=== PATIENT | female | born 1960 | race Caucasian/White ===

== ENCOUNTER → 2016-10-18 | Outpatient (CLI) | payer OTHER ==
[~2016-10-18] MED LIST: ASPI-28 PO; BENA20TA48 PO; [UNRECOGNIZED DRUG - CODE] PO
--- NOTE | 2016-10-18 09:55 | RADRPT ---
PROCEDURE: XR right knee. CLINICAL INDICATION: Knee pain. TECHNIQUE: Three views are available for review. COMPARISON: 05/22/2015 FINDINGS: There is a total knee replacement. There is no evidence of loosening of the prosthesis. The osseous structures are normal in mineralization, architecture and alignment No acute fracture or dislocation is seen.No osseous lesions are identified. The soft tissues are unremarkable . IMPRESSION: Unremarkable total knee replacement. RPTAT: [facility] .Valdez Rowe MD, MD Date Time Electronically viewed and signed by .Valdez Rowe MD, on 10/18/2016 09:54 .B/
--- NOTE | 2016-10-18 10:38 | RADRPT ---
PROCEDURE: XR Knee 3 views. CLINICAL INDICATION: Status post knee replacement TECHNIQUE: AP, sunrise and lateral view of the left knee were obtained. The images reviewed on a PACS workstation. COMPARISON: January 29, 2016 FINDINGS: Complete left knee replacement is identified. Prosthetic components are in appropriate position and alignment. No fractures or destructive lesions are observed. Diffuse osteopenia is noted. Soft tiss ues are unremarkable. IMPRESSION: Status post left knee replacement. Prosthetic components are in appropriate position and alignment. Osteopenia. RPTAT: AA .Junior Valero MD, MD Date Time Electronically viewed and signed by .Junior Valero MD, MD on 10/18/2016 10:38 .P/
== END | disposition home or self-care (01) ==
LOC: HKI 10:11
PROVIDERS: ATTEND Orthopaedic Surgery
DX: Z47.1 Aftercare following joint replacement surgery (principal); Z96.653 Presence of artificial knee joint, bilateral
CPT/HCPCS: 73562; Z7500; G0463

== ENCOUNTER 2017-02-10 15:59 | Day surgery (SDC) | payer OTHER ==
[~2017-02-10] VITALS: Ht 160 cm; Wt 96.8 kg
[2017-02-10 16:53] VITALS: Ht 160 cm; Wt 96.8 kg
[2017-02-10 17:43] VITALS: BP 149/72; PULSE 79; RESP 18
[2017-02-10] MEDS ORDERED: PROPOFOL 40 ML ONE (17:59)
[2017-02-10 18:51] VITALS: BP 144/73; PULSE 68; RESP 12
--- NOTE | 2017-02-10 23:03 | GILP ---
DATE OF PROCEDURE: 02/10/2017 PREOPERATIVE DIAGNOSIS: Screening colonoscopy to rule out colon polyps. POSTOPERATIVE DIAGNOSES: 1. Minimal external hemorrhoids. 2. Minimal diverticulosis. DESCRIPTION OF PROCEDURE: After informed written consent was obtained, the patient was asked to lie on the left lateral side. Intravenous anesthesia was given by anesthesiologist. When the patient became somnolent, the Olympus video colonoscope was introduced into the rectum and scope was advance d all the way to the cecum. The entire colon appeared normal. Occasional diverticula noted. They were small in size, very few in number. No inflammation, no ulcers, no colitis, no neoplasm noted. Endoscope at this time was withdrawn. On the way out, minimal external hemorrhoids were noted and the procedure was terminated. PLAN: Recommend a high fiber diet. Repeat colonoscopy in 10 years. Dictated By: FALGUNI BENTLEY/YUMI Conf#: [id number] DID#: [id number]
== END 2017-02-10 19:57 | disposition home or self-care (01) ==
LOC: GIL 15:59
PROVIDERS: ATTEND Internal Medicine Gastroenterology
DX: Z12.11 Encounter for screening for malignant neoplasm of colon (principal); K64.8 Other hemorrhoids; K57.90 Diverticulosis of intestine, part unspecified, without perforation or abscess without bleeding
CPT/HCPCS: 45378; Z7610

== ENCOUNTER 2018-04-20 16:42 | Emergency (ER) | END 2018-04-20 19:32 | disposition home or self-care (01) ==

== ENCOUNTER 2018-05-01 16:16 | Emergency (ER) | END 2018-05-01 19:00 | disposition left against medical advice (07) ==

== ENCOUNTER 2018-05-20 16:52 | Emergency (ER) | END 2018-05-20 20:37 | disposition home or self-care (01) ==

== ENCOUNTER 2018-07-29 12:05 | Emergency (ER) | END 2018-07-29 15:12 | disposition home or self-care (01) ==